=== PATIENT | female | born 1955 | race Two or more races ===

== ENCOUNTER 2023-08-22 12:08 | Emergency (ER) | payer OTHER ==
[~2023-08-22] VITALS: Ht 162.6 cm; Wt 68.0 kg
[2023-08-22] MEDS ORDERED: PROTONIX40 M1 PO (12:27)
[2023-08-22] MEDS ORDERED: FLUOXETINE HCL60 MG PO (12:27)
[2023-08-22] MEDS ORDERED: ATORVASTATIN CA10 MG PO (12:27)
[2023-08-22] MEDS ORDERED: HORIZANT300 MG PO (12:28)
== END 2023-08-22 16:41 | disposition home or self-care (01) ==
LOC: ER 12:09
DX: S01.81XA Laceration without foreign body of other part of head, initial encounter (principal); S39.92XA Unspecified injury of lower back, initial encounter; S79.912A Unspecified injury of left hip, initial encounter; W18.39XA Other fall on same level, initial encounter; Y93.89 Activity, other specified; Y92.89 Other specified places as the place of occurrence of the external cause; Y99.9 Unspecified external cause status; Z85.3 Personal history of malignant neoplasm of breast
CPT/HCPCS: 12002; 70260; 71110; 73010; 73501; 96372; 99284; J1885; J2360